=== PATIENT | female | born 1940 | race Caucasian/White ===

== ENCOUNTER 2016-10-23 19:36 | Emergency (ER) | payer MEDICARE, BC ==
[~2016-10-23] VITALS: Ht 167.6 cm; Wt 71.0 kg
[~2016-10-23 19:36] MED LIST: ALPR0.25 PO; LOVA40TA PO; OMEP20TA39 PO; PROBCAP4 PO
[2016-10-23 19:48] VITALS: BP 166/93; PULSE 81; RESP 18; TEMP 98.6; O2SAT 97
[2016-10-23] MEDS ORDERED: SODIUM CHLOR 0.9% 1000 ML INJ 1,000 ML IV SCH (20:10)
[2016-10-23] MEDS ORDERED: PANTOPRAZOLE SODIUM 40 MG VIAL IVP ONE (20:15)
[2016-10-23] MEDS ORDERED: SODIUM CHLORIDE 0.9% FLUSH 10 ML FLUSH IV FLUSH PRN (20:15)
[2016-10-23] MEDS ORDERED: ONDANSETRON HCL 4 MG/2 ML VIAL IVP ONE (20:15)
[2016-10-23] MEDS ORDERED: MORPHINE SULFATE 4 MG/ML INJ IV PUSH ONE (20:15)
--- NOTE | 2016-10-23 20:19 | PD ---
HPI . Diarrhea Chief Complaint: GI Complaint Time Seen by Provider: 19:59 Travel History International Travel<30 days: No Contact w/Intl Traveler<30days: No Traveled to known affect area: No History of Present Illness HPI Patient presents with nausea, vomiting and diarrhea. She states that she has been feeling poorly since Memorial Day with intermittent nausea and loose stools. She states that her symptoms were not so severe that it affected her activities of daily living. Her symptoms became acutely worse last night. She reports 2 episodes of emesis and too numerous to count episodes of diarrhea last night. She describes the diarrhea as brown and watery. She is also complaining with upper abdominal pain which she rates as 89/10. She described this as a burning "hurt." She reports associated chills. PFSH Past Medical History Arthritis: Yes Anxiety: Yes Cancer: No Cardiovascular Problems: Yes High Cholesterol: Yes Endocrine: No GERD: Yes Genitourinary: No Immune Disorder: No Musculoskeletal: Yes Neurologic: No Psychiatric: No Reproductive: No Respiratory: No ?: Not Menopausal: Yes Social History Alcohol Use: No Tobacco Use: No Substance Use: No Allergies-Medications (Allergen,Severity, Reaction): Coded Allergies: No Known Allergies (Verified , 10/23/16) Reported Meds & Prescriptions Reported Meds & Active Scripts Active Reported Pepto-Bismol Liq (Bismuth Subsalicylate) 262 Mg/15 Ml Susp 30 Ml PO PRN Do not exceed 8 doses (240 mL or 16 tbsp) in 24 hours. Metronidazole 500 Mg Tab 500 Mg PO TID Omeprazole 20 Mg Tab 20 Mg PO DAILY Lovastatin 20 Mg Tab 20 Mg PO DAILY Review of Systems Except as stated in HPI: all other systems reviewed are Neg General / Constitutional: Positive: Chills Gastrointestinal: Positive: Nausea, Vomiting, Diarrhea, Abdominal Pain Genitourinary: No: Urgency, Frequency, Dysuria Physical Exam Narrative GENERAL: Awake and alert and in no acute distress. SKIN: Warm and dry. HEAD: Atraumatic. Normocephalic. EYES: Pupils equal and round. Extraocular movements are intact. ENT: No nasal bleeding or discharge. Mucous membranes pink and moist. NECK: Trachea midline. Neck is supple. CARDIOVASCULAR: Regular rate and rhythm. Heart sounds are normal. RESPIRATORY: No accessory muscle use. Lungs are clear with good air movement throughout. GASTROINTESTINAL: Abdomen soft, non-tender, nondistended. Bowel sounds increased. MUSCULOSKELETAL: No obvious deformities. No edema. NEUROLOGICAL: Awake and alert. No obvious cranial nerve deficits. Motor grossly within normal limits. Normal speech. PSYCHIATRIC: Appropriate mood and affect; insight and judgment normal. Data Data Last Documented VS Vital Signs Date Time Temp Pulse Resp B/P Pulse Ox O2 Delivery O2 Flow Rate FiO2 10/23/16 20:42 20 10/23/16 19:48 98.6 81 166/93 97 Orders Complete Blood Count With Diff (10/23/16 20:10) Comprehensive Metabolic Panel (10/23/16 20:10) Lipase (10/23/16 20:10) Ct Abd/Pel W Iv Contrast(Rout) (10/23/16 20:10) Iv Access Insert/Monitor (10/23/16 20:10) Morphine Inj (Morphine Inj) (10/23/16 20:15) Ondansetron Inj (Zofran Inj) (10/23/16 20:15) Pantoprazole Inj (Protonix Inj) (10/23/16 20:15) Sodium Chlor 0.9% 1000 Ml Inj (Ns 1000 M (10/23/16 20:10) Sodium Chloride 0.9% Flush (Ns Flush) (10/23/16 20:15) Electrocardiogram (10/23/16 20:10) Prochlorperazine Inj (Compazine Inj) (10/23/16 21:45) Diphenhydramine Inj (Benadryl Inj) (10/23/16 21:45) Iohexol 350 Inj (Omnipaque 350 Inj) (10/23/16 21:35) Labs Laboratory Tests Test 10/23/16 20:15 White Blood Count 5.0 TH/MM3 Red Blood Count 4.35 MIL/MM3 Hemoglobin 13.5 GM/DL Hematocrit 39.6 % Mean Corpuscular Volume 91.0 FL Mean Corpuscular Hemoglobin 31.1 PG Mean Corpuscular Hemoglobin 34.2 % Concent Red Cell Distribution Width 12.9 % Platelet Count 138 TH/MM3 Mean Platelet Volume 10.4 FL Neutrophils (%) (Auto) 81.4 % Lymphocytes (%) (Auto) 13.0 % Monocytes (%) (Auto) 4.7 % Eosinophils (%) (Auto) 0.7 % Basophils (%) (Auto) 0.2 % Neutrophils # (Auto) 4.2 TH/MM3 Lymphocytes # (Auto) 0.6 TH/MM3 Monocytes # (Auto) 0.2 TH/MM3 Eosinophils # (Auto) 0.0 TH/MM3 Basophils # (Auto) 0.0 TH/MM3 CBC Comment DIFF FINAL Differential Comment Sodium Level 141 MEQ/L Potassium Level 3.6 MEQ/L Chloride Level 107 MEQ/L Carbon Dioxide Level 24.7 MEQ/L Anion Gap 9 MEQ/L Blood Urea Nitrogen 11 MG/DL Creatinine 0.98 MG/DL Estimat Glomerular Filtration 55 ML/MIN Rate Random Glucose 109 MG/DL Calcium Level 8.3 MG/DL Total Bilirubin 0.4 MG/DL Aspartate Amino Transf 34 U/L (AST/SGOT) Alanine Aminotransferase 60 U/L (ALT/SGPT) Alkaline Phosphatase 79 U/L Total Protein 7.8 GM/DL Albumin 3.5 GM/DL Lipase 124 U/L [facility] Medical Decision Making Medical Screen Exam Complete: Yes Emergency Medical Condition: Yes Medical Record Reviewed: Yes (medical history is significant for IBS, GERD, HL and HTN.) Interpretation(s) EKG shows a normal sinus rhythm with no acute ischemic change. Differential Diagnosis Differential diagnosis of diarrhea includes but is not limited to early enteritis, bacterial enteritis, antibiotic induced diarrhea, irritable bowel syndrome. Narrative Course Patient presents for evaluation and treatment of vomiting, diarrhea and upper abd pain. CBC & BMP Diagram 10/23/16 20:15 Liver function studies are basically normal. Lipase is 124. Last Impressions Abdomen/Pelvis CT 10/23/162009 Signed Impressions: Service Date/Time: October 21:14 - CONCLUSION: No acute CT findings in the abdomen or pelvis. Real Ashby MD Diagnosis Primary Impression: Vomiting Qualified Code: R11.2 - Non-intractable vomiting with nausea, unspecified vomiting type Additional Impressions: Diarrhea Qualified Code: R19.7 - Diarrhea, unspecified type Upper abdominal pain Patient Instructions: Abdominal Pain (ED), Acute Diarrhea (ED), Acute Nausea and Vomiting (DC), General Instructions Med/Other Pt SpecificInfo: Prescription(s) given Scripts Ondansetron Odt (Zofran Odt)4 Mg Tab4 Mg SL Q6HR PRN (Nausea/Vomiting) #30 TAB Ref 0 Prov:Radha De La Cruz MD 10/23/16 Disposition: 01 DISCHARGE HOME Condition: Stable Radha De La Cruz MD Oct 23, 2016 20:19
[2016-10-23 20:24] LABS: AUTOMATED NEUTROPHIL # 4.2 TH/MM3 (1.8-7.7); BASOPHIL % 0.2 % (0.0-2.0); EOSINOPHIL % 0.7 % (0.0-4.0); HEMATOCRIT 39.6 % (35.0-46.0); LYMPHOCYTE # 0.6 TH/MM3 (1.0-4.8); MEAN CORPUSCULAR HEMOGLOBIN 31.1 PG (27.0-34.0); MEAN CORPUSCULAR HGB CONC 34.2 % (32.0-36.0); MONO % 4.7 % (0.0-8.0); NEUT % 81.4 % (16.0-70.0); PLATELET COUNT 138 TH/MM3 (150-450); RED BLOOD COUNT 4.35 MIL/MM3 (4.00-5.30); RED CELL DISTRIBUTION WIDTH 12.9 % (11.6-17.2)
[2016-10-23 20:27] LABS: HEMO FLAGS DIFF FINAL
[2016-10-23 20:31] LABS: CHLORIDE 107 MEQ/L (98-107); POTASSIUM 3.6 MEQ/L (3.5-5.1); SODIUM (NA) 141 MEQ/L (136-145)
[2016-10-23 20:35] LABS: ANION GAP 9 MEQ/L (5-15); BICARBONATE 24.7 MEQ/L (21.0-32.0); BLOOD UREA NITROGEN 11 MG/DL (7-18)
[2016-10-23 20:38] LABS: ALT (GPT) 60 U/L (10-53); AST (GOT) 34 U/L (15-37); GLOMERULAR FILTRATION RATE 55 ML/MIN (>89)
[2016-10-23] MEDS ORDERED: PEPT262S PO (20:38)
[2016-10-23] MEDS ORDERED: METR500T10 PO (20:38)
[2016-10-23] MEDS ORDERED: LOVA20TA PO (20:38)
[2016-10-23] MEDS ORDERED: OMEP20TA PO (20:38)
[2016-10-23 20:40] LABS: TOTAL BILIRUBIN ADULT 0.4 MG/DL (0.2-1.0)
[2016-10-23 20:41] VITALS: BP 159/75; PULSE 72; RESP 20; O2SAT 96
[2016-10-23 20:41] LABS: ALKALINE PHOSPHATASE 79 U/L (45-117)
[2016-10-23] MEDS ORDERED: IOHEXOL 350 MG/ML 10 ML VIAL (for RAD DIAG) IV ONE (21:35)
[2016-10-23 21:41] VITALS: BP 166/79; PULSE 82; RESP 20; O2SAT 99
[2016-10-23] MEDS ORDERED: diphenhydrAMINE HCL 50 MG/ML VIAL IV PUSH ONE (21:45)
[2016-10-23] MEDS ORDERED: PROCHLORPERAZINE INJ 10 MG/2 ML VIAL IV PUSH ONE (21:45)
--- NOTE | 2016-10-23 21:54 | RADHPO ---
EXAM DATE/TIME: 10/23/2016 21:14 [facility] COMPARISON: No previous studies available for comparison. INDICATIONS : Diarrhea and vomiting for one day.Upper abdomen pain IV CONTRAST: 68 cc Omnipaque 350 (iohexol) IV ORAL CONTRAST: No oral contrast ingested. RADIATION DOSE: 10.16 CTDIvol (mGy) MEDICAL HISTORY : Gastroesophageal reflux disease. Diverticulitis. SURGICAL HISTORY : Dilation and curettage ENCOUNTER: Initial ACUITY: 1 day PAIN SCALE: 4/10 LOCATION: abdomen TECHNIQUE: Volumetric scanning of the abdomen and pelvis was performed. Using automated exposure control and ad justment of the mA and/or kV according to patient size, radiation dose was kept as low as reasonably achievable to obtain optimal diagnostic quality images. FINDINGS: LOWER LUNGS: The visualized lower lungs are clear. LIVER: Homogeneous density without lesion. There is no dilation of the biliary tree. No calcified gallston es. SPLEEN: Granulomatous calcifications. Normal size with no focal mass. PANCREAS: Within normal limits. KIDNEYS: Normal in size and shape. There is no mass, stone or hydronephrosis. ADRENAL GLANDS: Within normal limits. VASCULAR: There is no aortic aneurysm. BOWEL/MESENTERY: The stomach, small bowel, and colon demonstrate no acute abnormality. There is no free intraperitone al air or fluid. ABDOMINAL WALL: Within normal limits. RETROPERITONEUM: There is no lymphadenopathy. BLADDER: No wall thickening or mass. REPRODUCTIVE: Within normal limits. INGUINAL: Shotty nodes bilaterally MUSCULOSKELETAL: Within normal limits for patient age. CONCLUSION: No acute CT findings in the abdomen or pelvis. Real Ashby MD on October 23, 2016 at 21:49 Board Certified Radiologist. This report was verified electronically.
[2016-10-23] MEDS ORDERED: ZOFR4TAB3 SL (22:22)
[2016-10-23 23:20] VITALS: BP 148/75
--- NOTE | 2016-10-24 17:43 | EKG ---
Date Performed: 10/23/2016 Time Performed: 20:11:08 PTAGE: 76 years EKG: Sinus rhythm ST-T changes are nonspecific Borderline ECG PREVIOUS TRACING : 08/30/2013 00.17 Compared to prior tracing no significant change DOCTOR: Michael Goldberg Interpretating Date/Time 10/24/2016 17:42:13
== END 2016-10-23 23:51 | disposition home or self-care (01) ==
LOC: PHED 19:36
DX: R11.2 Nausea with vomiting, unspecified (principal); R19.7 Diarrhea, unspecified; R10.10 Upper abdominal pain, unspecified; R94.31 Abnormal electrocardiogram [ECG] [EKG]
CPT/HCPCS: 74177; 80053; 83690; 85025; 93005; 96361; 96374; 96375; 99285; C9113; J0780; J1200; J2270; J2405; J7030; Q9967